=== PATIENT | male | born 1975 | race Caucasian/White ===

== ENCOUNTER → 2018-07-01 13:28 | Outpatient (CLI) | payer OTHER, SELFPAY ==
[2018-07-01 14:05] LABS: Basophils % 0.8 % (0.1-2.0); Eosinophils # 0.3 K/mm3 (0.0-0.4); Eosinophils % 5.1 % (0.1-12.0); Hematocrit 45.8 % (42.0-52.0); Hemoglobin 14.6 g/dL (14.1-18.0); Lymphocytes # 1.8 K/mm3 (0.7-4.5); Lymphocytes % 35.3 % (10-50); Mean Corpuscular HGB Conc 31.9 g/dL (31.8-35.4); Mean Corpuscular Hemoglobin 28.7 pg (27.0-31.2); Mean Corpuscular Volume 89.9 fl (80-94); Mean Platelet Volume 7.7 fl (7.4-10.4); Monocytes # 0.4 K/mm3 (0.1-1.0); Monocytes % 7.7 % (1.7-9.3); Neutrophils # 2.7 K/mm3 (1.8-7.8); Neutrophils % 51.1 % (37.0-80.0); Platelet Count 294 K/mm3 (142-424); Red Cell Distribution Width 13.6 % (11.5-17.5); White Blood Count 5.2 K/mm3 (4.8-10.8)
[2018-07-01 14:06] LABS: Alanine Aminotransferase 25 U/L (12-78); Albumin Level 3.8 gm/dL (3.4-5.0); Albumin/Globulin Ratio 1.1 (1.1-1.8); Alkaline Phosphatase 70 U/L (46-116); Anion Gap 12.1 mEq/L (5-15); Aspartate Amino Transferase 10 U/L (15-37); Bilirubin,Total 0.3 mg/dL (0.2-1.0); Blood Urea Nitrogen 13 mg/dL (7-18); Calcium 9.4 mg/dL (8.5-10.1); Carbon Dioxide 28 mmol/L (21.0-32.0); Chloride 105 mmol/L (98-107); Chol/HDL Ratio 6.7 (1-3.5); Cholesterol 241 mg/dL (140-200); Creatinine,Serum 0.86 mg/dL (0.70-1.30); Estimated Glomerular Filt Rate 96 ml/min (>60); GFR (African American) 116 ML/MIN (>60); Globulin 3.5 gm/dl (1.3-3.2); Glucose 76 mg/dL (74-106); HDL Cholesterol 36 mg/dL (27-67); LDL Cholesterol 177 mg/dL (0-130); Potassium 4.1 mmoL/L (3.5-5.1); Sodium 141 mmol/L (136-145); T4 (Thyroxine) 5.4 ug/dl (4.7-13.3); Thyroid Stimulating Hormone 5.24 uIU/ml (0.358-3.740); Total Protein,Serum 7.3 gm/dL (6.4-8.2); Triglycerides 138 mg/dL (30-200); VLDL Cholesterol 28 mg/dL (0-40)
[2018-07-03 10:14] LABS: Vitamin D 25 Hydroxy 15.9 ng/mL (30.0-100.0)
== END ==
PROVIDERS: Visit Provider Physician Assistant
DX: Z00.00 Encounter for general adult medical examination without abnormal findings (principal)
CPT/HCPCS: 80053; 80061; 82652; 84436; 84443; 85025

== ENCOUNTER → 2018-08-02 12:50 | Outpatient (CLI) | payer OTHER, SELFPAY ==
--- NOTE | 2018-08-02 12:53 | MR_ITS ---
MR lumbar spine wo con, MR 3-d myelogram/MRCP HISTORY: LBP XYRS. NO HX lumbar surgery. No trauma. ITS.REASON: Low back pain ? Fragmented left transverse process ORDERING PHYSICIAN: KATE English PATIENT AGE: 43 years Comparison: None TECHNIQUE: Standard multiplanar multiecho sequences are performed without contrast. 3-D MIP and myelographic images are also rendered and reviewed FINDINGS: There are no previous exams available for comparison. There is normal alignment. The spinal cord ends at the L2-L3 level. L1-L2: Unremarkable. The L1 transverse process is not included on the axial images L2-L3: Unremarkable. L3-L4: Mild facet and ligamentum flavum hypertrophy with mild bilateral foraminal narrowing. L4-5: Mild concentric bulging disc along with facet and ligamentum flavum hypertrophy with mild bilateral foraminal narrowing. L5-S1: Degenerative disc disease with bulging disc and small broad-based central disc protrusion with annular fissure. There is facet and ligamentum flavum hypertrophy with moderate bilateral lateral recess and foraminal narrowing. There is narrowing of the canal secondary to the disc protrusion/bulge. IMPRESSION: 1. Degenerative disc disease at L5-S1 with bulging disc and small broad-based central disc protrusion with annular fissure. There is facet and ligamentum flavum hypertrophy with moderate bilateral lateral recess and foraminal narrowing. There is narrowing of the canal secondary to the disc protrusion/bulge 2. Mild bilateral foraminal narrowing at L3-L4 and L4-L5 facet and ligamentum flavum hypertrophy 3. No extruded herniated disc
== END ==
PROVIDERS: PCP Physician Assistant; Visit Provider Physician Assistant
DX: M54.5 Low back pain (principal)
CPT/HCPCS: 72148; 76376

== ENCOUNTER → 2018-08-23 08:28 | Outpatient (POV) | payer OTHER, SELFPAY ==
[2018-08-23 08:40] VITALS: BP 161/89; PULSE 83; RESP 18; O2SAT 98
--- NOTE | 2018-08-23 09:37 | HMH.PMCON ---
Assessment and Plan (1) Facet arthropathy Current visit: Yes Status: Chronic Category: Medical Code(s): M47.819 - Spondylosis without myelopathy or radiculopathy, site unspecified (2) Degenerative disc disease Current visit: Yes Status: Chronic Qualifiers: Spinal region: lumbar Qualified Code(s): M51.36 - Other intervertebral disc degeneration, lumbar region Category: Medical (3) Left knee pain Current visit: Yes Status: Chronic Qualifiers: Chronicity: chronic Qualified Code(s): M25.562 - Pain in left knee; G89.29 - Other chronic pain Category: Medical Code(s): M25.562 - Pain in left knee - Assessment and plan all Dx Assessment and Plan for all problems:: I believe the patient would benefit from a work-up in regards to his left knee pain we will send him to Dr. BRANCH for consultation and potential Synvisc injections. We will also give him some information on facet joint injections I believe they would be beneficial for him. Patient's will be started on diclofenac 75 mg 1 p.o. twice daily we will see him back in 2 to 3 weeks to reassess his symptoms at that time. Dr. Wilde has reviewed this note and agrees with this plan of care. This note was dictated using voice recognition software and may contain errors or omissions HPI - Data of Consult Consult date: 08/23/18 Requesting Physician: Isha Perez APRN Primary Care Provider: KATE Hinds - Consult Narrative Reason for consult: Back pain and left knee pain History of present illness: Mr. Daniels is a 43 year old male who presents today for consultation in regards to his low back and left knee pain. Patient has recently moved here from [place]. He was in a pain clinic there where he was receiving [place] and Zanaflex. Patient has not been on any anti-inflammatories or arthritic medication. Patient had declined injections in the past after reading about them on the Internet. Patient has completed physical therapy with no relief. Patient has not seen orthopedic surgeon for his knee. I believe that would be beneficial. He does she does have a left knee x-ray bourbon. Patient states that most of his pain is when he is bending and squatting. Patient also has an abnormal MRI. Most of his pain is low back and focal he has pain when he is rotating. He rates his pain today a 5 out of 10. CC: Isha Perez APRN [facility] History I have reviewed the patient's past medical history: Yes Medical History: Reports:: Hypertension Other Medical History: Reports: Arthritis Other Surgeries: Yes: No Previous Surgery Amputation: No Fractures: No - *Social History Smoking Status: Never smoker Alcohol Intake: never Substance Use Type: denies use *Occupational Status:: employed Housing: house *Travel in the last 8 weeks: None - Psychiatric History Expresses thoughts of harming self/others: None Suicide Plan Description: No Plan Family Hx:: Diabetes, Cancer Review of Systems - Review of Systems ROS General: no recent weight change, no fever, no sleep disturbances Respiratory: no cough, no shortness of air, no recurring pulmonary infections Cardiovascular/Peripheral Vascular: No chest pain, No palpitations, no edema, no shortness of breath. Gastrointestinal: no incontinence, normal bowel movements reported Genitourinary: no incontinence Musculoskeletal: Back pain, left knee pain Psychiatric: normal mood/ affect Neurological: [denies weakness in extremities], [denies balance issues] Meds Home Medications Medication Instructions Recorded Confirmed Type fluticasone propionate 50 1 spray INTRANASAL QDAY 30 Days 07/01/18 07/08/18 Rx mcg/actuation nasal #9.9 g spray,suspension lisinopril 5 mg tablet 5 mg PO DAILY #30 tab 07/01/18 07/08/18 Rx loratadine 10 mg tablet 10 mg PO DAILY #30 tab 07/01/18 07/08/18 Rx naproxen 500 mg tablet 500 mg PO Q12H 30 Days #60 tab 07/01/18 07/08/18 Rx atorvast
--- NOTE | 2018-08-23 09:41 | P.CONS_ITS ---
Assessment and Plan (1) Facet arthropathy Current visit: Yes Status: Chronic Category: Medical Code(s): M47.819 - Spondylosis without myelopathy or radiculopathy, site unspecified (2) Degenerative disc disease Current visit: Yes Status: Chronic Qualifiers: Spinal region: lumbar Qualified Code(s): M51.36 - Other intervertebral disc degeneration, lumbar region Category: Medical (3) Left knee pain Current visit: Yes Status: Chronic Qualifiers: Chronicity: chronic Qualified Code(s): M25.562 - Pain in left knee; G89.29 - Other chronic pain Category: Medical Code(s): M25.562 - Pain in left knee - Assessment and plan all Dx Assessment and Plan for all problems:: I believe the patient would benefit from a work-up in regards to his left knee pain we will send him to Dr. BRANCH for consultation and potential Synvisc injections. We will also give him some information on facet joint injections I believe they would be beneficial for him. Patient's will be started on diclofenac 75 mg 1 p.o. twice daily we will see him back in 2 to 3 weeks to reassess his symptoms at that time. Dr. Wilde has reviewed this note and agrees with this plan of care. This note was dictated using voice recognition software and may contain errors or omissions HPI - Data of Consult Consult date: 08/23/18 Requesting Physician: Isha Perez APRN Primary Care Provider: KATE Hinds - Consult Narrative Reason for consult: Back pain and left knee pain History of present illness: Mr. Daniels is a 43 year old male who presents today for consultation in regards to his low back and left knee pain. Patient has recently moved here from [place]. He was in a pain clinic there where he was receiving [place] and Zanaflex. Patient has not been on any anti-inflammatories or arthritic medication. Patient had declined injections in the past after reading about them on the Internet. Patient has completed physical therapy with no relief. Patient has not seen orthopedic surgeon for his knee. I believe that would be beneficial. He does she does have a left knee x-ray bourbon. Patient states that most of his pain is when he is bending and squatting. Patient also has an abnormal MRI. Most of his pain is low back and focal he has pain when he is rotating. He rates his pain today a 5 out of 10. CC: Isha Perez APRN [facility] History I have reviewed the patient's past medical history: Yes Medical History: Reports:: Hypertension Other Medical History: Reports: Arthritis Other Surgeries: Yes: No Previous Surgery Amputation: No Fractures: No - *Social History Smoking Status: Never smoker Alcohol Intake: never Substance Use Type: denies use *Occupational Status:: employed Housing: house *Travel in the last 8 weeks: None - Psychiatric History Expresses thoughts of harming self/others: None Suicide Plan Description: No Plan Family Hx:: Diabetes, Cancer Review of Systems - Review of Systems ROS General: no recent weight change, no fever, no sleep disturbances Respiratory: no cough, no shortness of air, no recurring pulmonary infections Cardiovascular/Peripheral Vascular: No chest pain, No palpitations, no edema, no shortness of breath. Gastrointestinal: no incontinence, normal bowel movements reported Genitourinary: no incontinence Musculoskeletal: Back pain, left knee pain Psychiatric: normal mood/ affect Neurological: [denies weakness in extremities], [denies balance issues] Meds
== END ==
PROVIDERS: PCP Physician Assistant; Visit Provider Clinical Nurse Specialist Family Health
DX: M47.819 Spondylosis without myelopathy or radiculopathy, site unspecified (principal); M51.36 Other intervertebral disc degeneration, lumbar region; M25.562 Pain in left knee; G89.29 Other chronic pain
CPT/HCPCS: 99202

== ENCOUNTER → 2018-09-13 13:37 | Outpatient (POV) | payer OTHER, SELFPAY ==
[2018-09-13 13:57] VITALS: BP 132/88; PULSE 69; RESP 18; O2SAT 98; BMI 36.1
--- NOTE | 2018-09-14 08:31 | P.CONS_ITS ---
[facility] Pain Management SOAP Note Subjective:: Patient is a pleasant 43-year-old white male who presents today for follow-up after being started on diclofenac 75 mg 1 p.o. twice daily. Patient states that has not helped him very much he rates his pain 8 out of 10 mostly in his low back. Patient does have positive facet loading. Patient is unsure if he wants to do any injective therapy. Patient does have a orthopedic consultation with next week. I did discuss facet joint injections with him. Patient can continue to think about it. We are going to get him a back brace to help with his job. I will follow-up with the patient after he sees the orthopedic surgeon. ROS General: no recent weight change, no fever, no sleep disturbances Respiratory: no cough, no shortness of air, no recurring pulmonary infections Cardiovascular/Peripheral Vascular: No chest pain, No palpitations, no edema, no shortness of breath. Gastrointestinal: no incontinence, normal bowel movements reported Genitourinary: no incontinence Musculoskeletal: Knee pain, back pain Psychiatric: normal mood/ affect Neurological: [denies weakness in extremities], [denies balance issues] Objective:: Physical Exam General: Alert and oriented x3, no acute distress, pleasant and cooperative, [on room air] Lungs: Resps E/U, Symmetrical chest expansion, Eyes: PERRL Musculoskeletal: Flexion and extension of lumbar spine somewhat guarded secondary to pain, deep tendon reflexes normal, strength in upper and lower extremities [5/5], antalgic gait noted, decreased range of motion bilateral knees Neurological: speech clear, 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 We will also get him a back brace for stability during his work. I do believe the patient would benefit from facet joint injections. He is going to continue to think about it. Dr. Wilde has reviewed this note and agrees with this plan of care. This note was dictated using voice recognition software and may contain errors or omissions
== END ==
PROVIDERS: PCP Physician Assistant; Visit Provider Clinical Nurse Specialist Family Health
DX: M51.36 Other intervertebral disc degeneration, lumbar region (principal); M47.819 Spondylosis without myelopathy or radiculopathy, site unspecified
CPT/HCPCS: 99212

== ENCOUNTER → 2018-09-27 10:55 | Outpatient (POV) | payer OTHER, SELFPAY ==
[2018-09-27 11:18] VITALS: BP 154/94; PULSE 70; RESP 18; O2SAT 98; BMI 36.7
--- NOTE | 2018-09-27 11:34 | HMH.PAINSOAP ---
[facility] Pain Management SOAP Note Subjective:: Patient is a 43-year-old white male who presents today for follow-up. Patient has been thinking about facet joint injections he is interested in pursuing this. Patient has moved up here from [place]. He was in pain management in [place] receiving narcotic medications. At first he was unsure of injective therapy he states if I cannot get medications what else I am I supposed to do . Patient would like to try injective therapy at this point. Patient had physical therapy in the past he is continuing a home stretching program. He is not on any anticoagulation therapy. We will also get him a back brace. He is also got an appointment to see orthopedic in regards to his knees. He rates his pain a 7 out of 10 ROS General: no recent weight change, no fever, no sleep disturbances Respiratory: no cough, no shortness of air, no recurring pulmonary infections Cardiovascular/Peripheral Vascular: No chest pain, No palpitations, no edema, no shortness of breath. Gastrointestinal: no incontinence, normal bowel movements reported Genitourinary: no incontinence Musculoskeletal: Back pain, leg pain Psychiatric: normal mood/ affect Neurological: [denies weakness in extremities], [denies balance issues] Objective:: Physical Exam General: Alert and oriented x3, no acute distress, pleasant and cooperative, [on room air] Lungs: Resps E/U, Symmetrical chest expansion, Eyes: PERRL Musculoskeletal: Flexion and extension of bar spine somewhat guarded secondary to pain, deep tendon reflexes normal, strength in upper and lower extremities [5/5], slightly antalgic gait noted, positive Kemps test, positive facet loading lumbar spine. Neurological: speech clear, narrow gauge engineer equal, no gross sensory deficits Assessment:: Degenerative disc disease lumbar spine with lumbar facet arthropathy Plan:: We will schedule a facet joint injection at L4-L5 L5-S1 bilaterally. Patient was explained that this is diagnostic in nature. We will also provide him with a back brace. Patient will be followed up with after his injection and reassess at that time. Dr. Wilde has reviewed this note and agrees with this plan of care. This note was dictated using voice recognition software and may contain errors or omissions
--- NOTE | 2018-09-27 11:38 | P.CONS_ITS ---
[facility] Pain Management SOAP Note Subjective:: Patient is a 43-year-old white male who presents today for follow-up. Patient has been thinking about facet joint injections he is interested in pursuing this. Patient has moved up here from [place]. He was in pain management in [place] receiving narcotic medications. At first he was unsure of injective therapy he states if I cannot get medications what else I am I supposed to do . Patient would like to try injective therapy at this point. Patient had physical therapy in the past he is continuing a home stretching program. He is not on any anticoagulation therapy. We will also get him a back brace. He is also got an appointment to see orthopedic in regards to his knees. He rates his pain a 7 out of 10 ROS General: no recent weight change, no fever, no sleep disturbances Respiratory: no cough, no shortness of air, no recurring pulmonary infections Cardiovascular/Peripheral Vascular: No chest pain, No palpitations, no edema, no shortness of breath. Gastrointestinal: no incontinence, normal bowel movements reported Genitourinary: no incontinence Musculoskeletal: Back pain, leg pain Psychiatric: normal mood/ affect Neurological: [denies weakness in extremities], [denies balance issues] Objective:: Physical Exam General: Alert and oriented x3, no acute distress, pleasant and cooperative, [on room air] Lungs: Resps E/U, Symmetrical chest expansion, Eyes: PERRL Musculoskeletal: Flexion and extension of bar spine somewhat guarded secondary to pain, deep tendon reflexes normal, strength in upper and lower extremities [5/5], slightly antalgic gait noted, positive Kemps test, positive facet loading lumbar spine. 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 Patient was explained that this is diagnostic in nature. We will also provide him with a back brace. Patient will be followed up with after his injection and reassess at that time. Dr. Wilde has reviewed this note and agrees with this plan of care. This note was dictated using voice recognition software and may contain errors or omissions
== END ==
PROVIDERS: PCP Physician Assistant; Visit Provider Clinical Nurse Specialist Family Health
DX: M51.36 Other intervertebral disc degeneration, lumbar region (principal); M54.06 Panniculitis affecting regions of neck and back, lumbar region
CPT/HCPCS: 99212

== ENCOUNTER → 2018-10-26 09:23 | Outpatient (POV) | payer OTHER, SELFPAY ==
[2018-10-26 09:44] VITALS: BP 131/78; PULSE 67; RESP 18; O2SAT 98; BMI 36.0
--- NOTE | 2018-10-26 10:25 | HMH.PAINSOAP ---
[facility] Pain Management SOAP Note Subjective:: Patient is a 43-year-old white male who presents today for follow-up. The patient has complaints of low back pain that worsens with ambulation. 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 The patient was in pain management in [place]. After relocating, he was referred to our office. His initial visit, the patient was adamant that he wanted to receive treatment with oral medication management. Patient reported that he was afraid of needles . After a thorough discussion at that visit, the patient did agree to facet injections. Unfortunately, the insurance company did not approve the injections, and the patient is very upset today. Patient states send me to pain management that we will give me oral medications . Patient rates his pain a 10 out of 10 today. Patient has tried physical therapy, along with anti-inflammatories for more than 3 months. Patient is not on any anticoagulation therapy. Review of Systems General: No recent weight changes, no fever, no sleep disturbances Respiratory: No cough, no shortness of air, no recurring pulmonary infections Cardiovascular/peripheral vascular: No chest pain, no palpitations, no edema, no shortness of breath Gastrointestinal: No new onset incontinence, normal bowel movements reported Genitourinary: No new onset incontinence Musculoskeletal: Back pain Psychiatric: Normal mood/affect Neurological: [Denies weakness in extremities], [denies balance issues] Objective:: Physical exam General: Alert and oriented x3, no acute distress, pleasant and cooperative, [on room air] Lungs: Respirations even and unlabored, symmetrical chest expansion Eyes: PERRL Musculoskeletal: Flexion and extension of lumbar spine somewhat guarded secondary to pain, deep tendon reflexes normal, strength in upper and lower extremities [5/5], slightly antalgic gait noted, positive Kemps test Neurological: Speech clear, life insurance agent equal, no gross sensory deficit Assessment:: Degenerative disc disease lumbar spine with lumbar facet arthropathy Plan:: The patient is very upset today. He has asked that we refer him to a new pain management facility. I did discuss with the patient that he would need a referral from his primary care provider. He has said that he will follow-up with Nia Sesay and seek referral from her. He says that he will consider injection therapy in the future. He has been instructed to call our office if he has any concerns. Dr. Wilde has reviewed this note and agrees with this plan of care. This note was dictated using voice recognition software and make contain errors or omissions.
--- NOTE | 2018-10-26 10:31 | P.CONS_ITS ---
[facility] Pain Management SOAP Note Subjective:: Patient is a 43-year-old white male who presents today for follow-up. The patient has complaints of low back pain that worsens with ambulation. 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 The patient was in pain management in [place]. After re locating, he was referred to our office. His initial visit, the patient was adamant that he wanted to receive treatment with oral medication management. Patient reported that he was afraid of needles . After a thorough discussion at that visit, the patient did agree to facet injections. Unfortunately, the insurance company did not approve the injections, and the patient is very upset today. Patient states send me to pain management that we will give me oral medications . Patient rates his pain a 10 out of 10 today. Patient has tried physical therapy, along with anti-inflammatories for more than 3 months. Patient is not on any anticoagulation therapy. Review of Systems General: No recent weight changes, no fever, no sleep disturbances Respiratory: No cough, no shortness of air, no recurring pulmonary infections Cardiovascular/peripheral vascular: No chest pain, no palpitations, no edema, no shortness of breath Gastrointestinal: No new onset incontinence, normal bowel movements reported Genitourinary: No new onset incontinence Musculoskeletal: Back pain Psychiatric: Normal mood/affect Neurological: [Denies weakness in extremities], [denies balance issues] Objective:: Physical exam General: Alert and oriented x3, no acute distress, pleasant and cooperative, [on room air] Lungs: Respirations even and unlabored, symmetrical chest expansion Eyes: PERRL Musculoskeletal: Flexion and extension of lumbar spine somewhat guarded secondary to pain, deep tendon reflexes normal, strength in upper and lower extremities [5/5], slightly antalgic gait noted, positive Kemps test Neurological: Speech clear, physical therapy aid equal, no gross sensory deficit Assessment:: Degenerative disc disease lumbar spine with lumbar facet arthropathy Plan:: The patient is very upset today. He has asked that we refer him to a new pain management facility. I did discuss with the patient that he would need a referral from his primary care provider. He has said that he will follow-up with Nia Sesay and seek referral from her. He says that he will consider injection therapy in the future. He has been instructed to call our office if he has any concerns. Dr. Wilde has reviewed this note and agrees with this plan of care. This note was dictated using voice recognition software and make contain errors or omissions.
== END ==
PROVIDERS: PCP Physician Assistant; Visit Provider Clinical Nurse Specialist Family Health
DX: M51.36 Other intervertebral disc degeneration, lumbar region (principal); M54.06 Panniculitis affecting regions of neck and back, lumbar region
CPT/HCPCS: 99212

== ENCOUNTER → 2021-03-13 11:28 | Outpatient (CLI) | payer OTHER, SELFPAY | PROVIDERS: Visit Provider Nurse Practitioner | DX: U07.1 COVID-19 (principal) | CPT/HCPCS: C9803; U0003; U0005 ==

== ENCOUNTER 2021-03-18 15:54 | Emergency (ER) | payer SELFPAY ==
[2021-03-18 16:08] VITALS: BP 155/98; PULSE 94; RESP 18; TEMP 38.4; O2SAT 96; BMI 40.7
[2021-03-18 20:42] VITALS: BP 132/79; PULSE 104; RESP 22; TEMP 37.9; O2SAT 96; BMI 28.5
--- NOTE | 2021-03-18 20:46 | HMH.EDUTC ---
[facility] [place] Disposition Clinical Impression: Otitis media Qualifiers: Otitis media type: unspecified Laterality: left Qualified Code(s): H66.92 - Otitis media, unspecified, left ear Disposition: Home, Self-Care Condition on Discharge: Good Instructions: Middle Ear Infections (Alternative Therapy), Middle Ear Infection, Amoxicillin Additional Instructions: *Monitor Temp, Over the counter Motrin or Tylenol as directed/as needed Tylenol every 4 hours and Motrin every 6 hours (as long as your family doctor has told you that you can take it) for fever or pain. and straight to ER if unable to lower temp less than 101.0 after medication given *Warm salt water gargles may help to soothe the throat *Throat Lozenges *Warm fluids like tea with honey may help to soothe the throat *Sleep elevated *Humidifier/Vaporizer Take medication as prescribed Follow up if needed Straight to ER if any life threatening symptoms Follow up IMMEDIATELY for new or worsening symptoms or no Noticeable improvement over the next 48-72 hours. 911 for difficulty breathing or swallowing Prescriptions: Amoxicillin [Amoxicillin 500mg Cap] 500 mg PO TID #30 cap Transmission Status: Received by [id number] Referrals: Provider,Referral, [Primary Care Provider] - As needed Medical Decision Making - Latrell Inquiry Pt receiving controlled substance: No Latrell was queried for this patient: No Vital Signs: 03/18/21 16:08 03/18/21 20:42 03/18/21 21:42 Temperature 101.1 F H 100.3 F H 100.3 F H Temperature Source Oral Oral Pulse Rate 104 H Pulse Rate [Right Radial] 94 H 104 H Respiratory Rate Blood Pressure 132/79 Blood Pressure [Right Arm] 155/98 H 132/79 Blood Pressure Mean [Right Arm] 117 96 Blood Pressure Source [Right Arm] Automatic Cuff Blood Pressure Position [Right Arm] Sitting 02 Sat by Pulse Oximetry 96 96 Oxygen Delivery Method Room Air [facility] [place] HPI - General Stated complaint: covid+ fever,cough,ORTEZ,Ear infection Time Seen by Provider: 03/18/21 19:35 Source of Information: Patient Limitations: No Limitations Description of Symptoms (Recalled from Triage Doc. by RN): Pt was covid positive on 03/13/2021. he has a fever, ear pain, and a head ache. - History of Present Illness Provider Complaint: Patient states that he is positive for COVID States that he has been having pain in his left ear and feels like he has an ear infection States that ear feels clogged like it is full of wax States that today it was hurting worse so he came in to get checked - Related Data Previous Rx's Medication Instructions Recorded fluticasone propionate 50 1 spray INTRANASAL QDAY 30 Days 07/01/18 mcg/actuation nasal #9.9 g spray,suspension loratadine 10 mg tablet 10 mg PO DAILY #30 tab 07/01/18 naproxen 500 mg tablet 500 mg PO Q12H 30 Days #60 tab 07/01/18 cholecalciferol (vitamin D3) 25 1,000 unit PO DAILY #90 cap 07/05/18 mcg (1,000 unit) capsule levothyroxine 25 mcg tablet 25 mcg PO DAILY #90 tab 07/05/18 atorvastatin 10 mg tablet See Rx Instructions .ROUTE 06/24/19 .COMPLEX #90 each lisinopril 5 mg tablet See Rx Instructions .ROUTE 06/24/19 .COMPLEX #90 tab ergocalciferol (vitamin D2) 1,250 50,000 unit PO QWEEK 90 Days #14 07/25/19 mcg (50,000 unit) capsule cap tizanidine 4 mg tablet 4 mg PO QHS PRN #90 tab 07/25/19 Amoxicillin [Amoxicillin 500mg 500 mg PO TID #30 cap 03/18/21 Cap] Allergies Allergy/AdvReac Type Severity Reaction Status Date / Time No Known Allergies Allergy Verified 11/04/18 10:16 [facility] History - Hepatitis A Screen Attestation statement:: This patient has been screened for Hepatitis A risk factors. I have reviewed the patient's past medical history: Yes Medical History: Reports:: Hypertension Other Medical History: Reports: Arthritis Other Surgeries: Yes: No Previous Surgery Amputation: No Fractures: No - Social History Smoking Status: Never smoker Alcohol I
[2021-03-18 21:42] VITALS: BP 132/79; PULSE 104; RESP 22; TEMP 37.9
== END 2021-03-18 21:54 | disposition home or self-care (01) ==
LOC: ER 16:06 → UTC 16:12
PROVIDERS: Emergency Provider Nurse Practitioner
DX: H66.92 Otitis media, unspecified, left ear (principal); U07.1 COVID-19
CPT/HCPCS: 99202; G0463

== ENCOUNTER 2021-04-15 10:50 | Emergency (ER) | payer SELFPAY ==
[2021-04-15 12:00] VITALS: BP 140/87; PULSE 78; RESP 18; TEMP 36.8; O2SAT 98; BMI 40.4
--- NOTE | 2021-04-15 12:35 | HMH.EDUTC ---
[facility] [place] Disposition Clinical Impression: Otitis media Qualifiers: Otitis media type: unspecified Laterality: left Qualified Code(s): H66.92 - Otitis media, unspecified, left ear Otitis externa Qualifiers: Otitis externa type: unspecified type Chronicity: unspecified Laterality: left Qualified Code(s): H60.92 - Unspecified otitis externa, left ear Disposition: Home, Self-Care Condition on Discharge: Good Instructions: Middle Ear Infection, Amoxicillin Additional Instructions: Take medication as prescribed FOllow up with Family Doctor if no improvement or any worsening of symptoms Follow up with ENT if no improvement or any worsening of symptoms Return if needed Straight to ER if any life threatening symptoms Prescriptions: Amoxicillin/Potassium Clav [Augmentin 875-125 Tablet] 1 tab PO Q12H 10 Days #20 tab Transmission Status: Pending to [id number] Ciprofloxacin HCl/Dexameth [Cipro 0.3%-Dex 0.1% Otic Susp 7.5mL] 4 drops EAR-LEFT BID 7 Days #7.5 ml Transmission Status: Pending to [facility] Referrals: Provider,MD Earnest [Primary Care Provider] - As needed Hal Rowe MD [Physician] - Alex Alcazar MD [Physician] - Time of Disposition: 12:50 Medical Decision Making - Latrell Inquiry Pt receiving controlled substance: No Latrell was queried for this patient: No Vital Signs: 04/15/21 12:00 Temperature 98.3 F Temperature Source Oral Pulse Rate [Right Brachial] 78 Respiratory Rate 18 Blood Pressure [Right Arm] 140/87 Blood Pressure Mean [Right Arm] 104 Blood Pressure Source [Right Arm] Automatic Cuff Blood Pressure Position [Right Arm] Sitting 02 Sat by Pulse Oximetry 98 Oxygen Delivery Method Room Air [facility] [place] HPI - General Stated complaint: left ear congestion Time Seen by Provider: 04/15/21 12:35 Mode of Arrival: Ambulatory Source of Information: Patient Limitations: No Limitations Description of Symptoms (Recalled from Triage Doc. by RN): PATIENT C/O LEFT EAR FEELS LIKE IT IS CLOGGED X 3 DAYS HEENT Symptoms (Recalled from RN notes): Yes Resp Symptoms (Recalled from RN notes): No Skin Symptoms (Recalled from RN notes): No MS Symptoms (Recalled from RN notes): No Functional Status (Recalled from RN notes): WNL - History of Present Illness Provider Complaint: Patient states that he feels like his left ear is clogged up States that he was seen for it about a month ago and finished his antibiotics States that now the pain has returned and he feels like that left ear is stopped up so he came in to see if he could get it cleaned out - Related Data Previous Rx's Medication Instructions Recorded fluticasone propionate 50 1 spray INTRANASAL QDAY 30 Days 07/01/18 mcg/actuation nasal #9.9 g spray,suspension loratadine 10 mg tablet 10 mg PO DAILY #30 tab 07/01/18 naproxen 500 mg tablet 500 mg PO Q12H 30 Days #60 tab 07/01/18 cholecalciferol (vitamin D3) 25 1,000 unit PO DAILY #90 cap 07/05/18 mcg (1,000 unit) capsule levothyroxine 25 mcg tablet 25 mcg PO DAILY #90 tab 07/05/18 atorvastatin 10 mg tablet See Rx Instructions .ROUTE 06/24/19 .COMPLEX #90 each lisinopril 5 mg tablet See Rx Instructions .ROUTE 06/24/19 .COMPLEX #90 tab ergocalciferol (vitamin D2) 1,250 50,000 unit PO QWEEK 90 Days #14 07/25/19 mcg (50,000 unit) capsule cap tizanidine 4 mg tablet 4 mg PO QHS PRN #90 tab 07/25/19 Amoxicillin [Amoxicillin 500mg 500 mg PO TID #30 cap 03/18/21 Cap] Amoxicillin/Potassium Clav 1 tab PO Q12H 10 Days #20 tab 04/15/21 [Augmentin 875-125 Tablet] Ciprofloxacin HCl/Dexameth [Cipro 4 drops EAR-LEFT BID 7 Days #7.5 ml 04/15/21 0.3%-Dex 0.1% Otic Susp 7.5mL] Allergies Allergy/AdvReac Type Severity Reaction Status Date / Time No Known Allergies Allergy Verified 11/04/18 10:16 - Worker's Comp Is this a Worker's Comp case?: No [facility] History - Hepatitis A Screen Drug use history?: No High risk sexual behaviors?: No History of sexually transmit
[2021-04-15 12:51] VITALS: BP 140/87; PULSE 78; RESP 18; TEMP 36.8; O2SAT 98
== END 2021-04-15 12:56 | disposition home or self-care (01) ==
PROVIDERS: Emergency Provider Nurse Practitioner
DX: H66.92 Otitis media, unspecified, left ear (principal); H60.92 Unspecified otitis externa, left ear; I10 Essential (primary) hypertension
CPT/HCPCS: 99202; G0463